=== PATIENT | female | born 1950 | race Two or more races ===

== ENCOUNTER 2024-07-06 14:44 | Inpatient (IN) | payer OTHER ==
[~2024-07-06] VITALS: Ht 162.6 cm; Wt 73.5 kg
[~2024-07-06 14:44] MED LIST: AVAPRO150 MG PO; LIPIT PO; NORVASC5 MG PO; SYNTHROID75 MCG PO
[2024-07-06] MEDS ORDERED: IRBESARTAN-HCT1 EACH (15:10)
[2024-07-06] MEDS ORDERED: METOPROLOL SUCC25 MG (15:10)
[2024-07-06] MEDS ORDERED: LIPITOR40 MG (15:10)
[2024-07-06] MEDS ORDERED: 0.9 % SODIUM CHLORIDE 1,000 ML IV STA (17:11)
[2024-07-06] MEDS ORDERED: KETOROLAC TROMETHAMINE 30 MG VIAL IV STA (17:12)
[2024-07-06] MEDS ORDERED: MORPHINE SULFATE 4 MG/ML CARTRIDGE IV STA (17:13)
[2024-07-06] MEDS ORDERED: HYOSCYAMINE SULFATE 0.125 MG TAB.SUBL SL ONE (17:15)
[2024-07-06] MEDS ORDERED: KETOROLAC TROMETHAMINE 30 MG VIAL ONE (17:23)
[2024-07-06] MEDS ORDERED: HYOSCYAMINE SULFATE 0.125 MG TAB.SUBL ONE (17:24)
[2024-07-06 17:37] LABS: HEMATOCRIT 50.8 % (36.0-45.00); HEMOGLOBIN 16.8 g/dL (12.0-15.00); MEAN CELL VOLUME 88.4 fL (80.00-100.00); MEAN CORPUSCULAR HEMOGLOBIN 29.2 pg (27.00-32.0); MEAN CORPUSCULAR HGB CONC 33.1 g/dl (32.0-36.0); PLATELET COUNT 269 K/uL (150-450); RED BLOOD COUNT 5.75 M/uL (4.00-6.00); RED CELL DISTRIBUTION WIDTH 14.4 % (11.5-14.5)
[2024-07-06 18:22] LABS: INR 0.99; PARTIAL THROMBOPLASTIN TIME 23.8 SECONDS (22.0-34.0); PROTHROMBIN TIME 10.8 SECONDS (9.0-11.5)
[2024-07-06 18:24] LABS: ALBUMIN 3.7 gm/dL (3.4-5.0); BILIRUBIN TOTAL 0.62 mg/dL (0.3-1.2); CALCIUM 9.7 mg/dL (8.5-10.1); CREATININE SERUM 1.54 mg/dL (0.55-1.02); GFR 32.75; GLOBULINA 3.7 G/DL (2.4-3.5); POTASSIUM 4.91 mEq/L (3.5-5.1); TOTAL PROTEIN 7.4 gm/dL (6.4-8.2)
[2024-07-06 23:00] VITALS: BP 104/69; O2SAT 98
[2024-07-06] MEDS ORDERED: ONDANSETRON HCL 4 MG in 0.9 % SODIUM CHLORIDE 50 ML IV PRN (23:00)
[2024-07-06] MEDS ORDERED: 0.9 % SODIUM CHLORIDE 1,000 ML IV SCH (23:00)
[2024-07-06] MEDS ORDERED: KETOROLAC TROMETHAMINE 15 MG VIAL IU ONE (23:00)
[2024-07-06] MEDS ORDERED: ACETAMINOPHEN 500 MG GEL..CAP PO PRN (23:00)
[2024-07-07] MEDS ORDERED: PIPERACILLIN/TAZOBACTAM SODIUM 3.375 GM in DEXTROSE 5 % IN WATER 100 ML IV SCH
[2024-07-07 05:59] VITALS: BP 97/55
[2024-07-07] MEDS ORDERED: LEVOTHYROXINE SODIUM 75 MCG TABLET PO SCH (06:00)
[2024-07-07 08:33] VITALS: BP 150/60; O2SAT 96
[2024-07-07] MEDS ORDERED: ENOXAPARIN SODIUM 40 MG/0.4 ML SYRINGE SUBCUTANEO SCH (09:00)
[2024-07-07] MEDS ORDERED: METOPROLOL SUCCINATE 25 MG TAB.SR.24H PO SCH (09:00)
[2024-07-07] MEDS ORDERED: FAMOTIDINE/PF 20 MG in 0.9 % SODIUM CHLORIDE 8 ML IV PUSH SCH (09:00)
[2024-07-07 10:54] LABS: URINE APPEARANCE Turbid; URINE BILIRRUBIN Small (NEGATIVE); URINE BLOOD Negative; URINE COLOR Dark Yellow; URINE GLUCOSE Negative (NEGATIVE); URINE KETONE Trace (NEGATIVE); URINE LEUKOCYTE Small; URINE NITRATE Negative; URINE PROTEIN 30 (NEGATIVE)
[2024-07-07 10:59] LABS: URINE BACTERIA 264.3 uL (0.0-1933); URINE EPITHELIAL CELLS 32.2 uL (0.0-38.8); URINE RBC 200.6 uL (0.0-20.8)
[2024-07-07 11:47] LABS: URINE CAST > 21.83 uL (0.0-1.40)
[2024-07-07 11:48] LABS: URINE CRYSTALS FEW /HPF
[2024-07-07] MEDS ORDERED: LACTOBACILLUS ACIDOPHILUS 1 CAP CAP PO SCH (17:00)
[2024-07-07 17:27] VITALS: BP 100/57; O2SAT 96
[2024-07-08 01:05] VITALS: BP 115/64; O2SAT 94
[2024-07-08 05:28] LABS: HEMATOCRIT 39.6 % (36.0-45.00); HEMOGLOBIN 13.1 g/dL (12.0-15.00); MEAN CELL VOLUME 88.7 fL (80.00-100.00); MEAN CORPUSCULAR HEMOGLOBIN 29.4 pg (27.00-32.0); MEAN CORPUSCULAR HGB CONC 33.2 g/dl (32.0-36.0); PLATELET COUNT 189 K/uL (150-450); RED BLOOD COUNT 4.46 M/uL (4.00-6.00)
[2024-07-08 06:33] LABS: ALBUMIN 3.1 gm/dL (3.4-5.0); BILIRUBIN TOTAL 0.69 mg/dL (0.3-1.2); CALCIUM 8.6 mg/dL (8.5-10.1); CREATININE SERUM 0.97 mg/dL (0.55-1.02); GFR 55.83; GLOBULINA 3.1 G/DL (2.4-3.5); MAGNESIUM 2.2 mg/dL (1.8-2.4); PHOSPHOROUS 3.3 mg/dL (2.5-4.9); POTASSIUM 3.99 mEq/L (3.5-5.1); TOTAL PROTEIN 6.2 gm/dL (6.4-8.2)
[2024-07-08 06:37] LABS: C-REACTIVE PROTEIN 1.63 MG/DL (0.00-0.29)
[2024-07-08 08:14] VITALS: BP 95/57
[2024-07-08 18:59] VITALS: BP 132/76
[2024-07-08] MEDS ORDERED: 0.9 % SODIUM CHLORIDE 10 ML VIAL IJ ONE (19:34)
[2024-07-08] MEDS ORDERED: METRONIDAZOLE/SODIUM CHLORIDE 100 ML IV SCH (21:00)
[2024-07-08] MEDS ORDERED: CLONAZEPAM 0.5 MG TABLET PO SCH (21:00)
[2024-07-08] MEDS ORDERED: CIPROFLOXACIN IN 5 % DEXTROSE 400 MG/200 ML PIGGYBAG IV SCH (21:00)
[2024-07-09 00:38] VITALS: BP 135/79; O2SAT 93
[2024-07-09 08:57] VITALS: BP 131/71
[2024-07-09 13:07] LABS: ob NEGATIVE (NEGATIVE)
[2024-07-09 16:51] VITALS: BP 150/76; O2SAT 96
[2024-07-10 01:42] VITALS: BP 126/77; O2SAT 93
[2024-07-10 08:49] VITALS: BP 139/72
[2024-07-10 17:20] VITALS: BP 138/79; O2SAT 96
[2024-07-11 01:38] VITALS: BP 123/64; O2SAT 96
[2024-07-11 09:21] VITALS: BP 116/93
[2024-07-12 21:04] LABS: GIARDIA LAMBLIA EIA Negative (Negative)
== END 2024-07-11 18:47 | disposition home or self-care (01) | DRG 392 ==
LOC: ER 14:47 → MEDI 23:00 → MEDJ 07-10 14:14
PROVIDERS: Internal Medicine Infectious Disease; ADMIT Specialist; ATTEND Specialist
PROC: BW21ZZZ Computerized Tomography (CT Scan) of Abdomen and Pelvis (ICD-10-PCS; principal; 2024-07-06)
PROC: CF1C1ZZ Planar Nuclear Medicine Imaging of Hepatobiliary System, All using Technetium 99m (Tc-99m) (ICD-10-PCS; 2024-07-07)
DX: K52.9 Noninfective gastroenteritis and colitis, unspecified (principal); N17.9 Acute kidney failure, unspecified; E03.9 Hypothyroidism, unspecified; I10 Essential (primary) hypertension

== ENCOUNTER 2024-07-22 08:32 | Emergency (ER) | payer OTHER ==
[~2024-07-22] VITALS: Ht 162.6 cm; Wt 72.6 kg
[~2024-07-22 08:32] MED LIST changes: +IRBESARTAN-HCT1 EACH; +LIPITOR40 MG; +METOPROLOL SUCC25 MG
[2024-07-22] MEDS ORDERED: IRBESARTAN-HCT1 EACH PO (09:07)
[2024-07-22] MEDS ORDERED: HYOSCYAMINE SULFATE 0.125 MG TAB.SUBL PO ONE (09:45)
[2024-07-22 10:13] LABS: HEMATOCRIT 41.1 % (36.0-45.00); HEMOGLOBIN 13.7 g/dL (12.0-15.00); MEAN CELL VOLUME 87.9 fL (80.00-100.00); MEAN CORPUSCULAR HEMOGLOBIN 29.3 pg (27.00-32.0); MEAN CORPUSCULAR HGB CONC 33.3 g/dl (32.0-36.0); PLATELET COUNT 225 K/uL (150-450); RED BLOOD COUNT 4.68 M/uL (4.00-6.00); RED CELL DISTRIBUTION WIDTH 14.9 % (11.5-14.5)
[2024-07-22 10:31] LABS: ALBUMIN 3.5 gm/dL (3.4-5.0); BILIRUBIN TOTAL 0.73 mg/dL (0.3-1.2); BILIRUBIN,CONJUGATED 0.17 mg/dL (0.0-0.2); BILIRUBIN,UNCONJUGATED 0.56 mg/dL (0.0-0.6); CALCIUM 9.3 mg/dL (8.5-10.1); CREATININE SERUM 1.02 mg/dL (0.55-1.02); GFR 52.69; POTASSIUM 3.87 mEq/L (3.5-5.1); TOTAL PROTEIN 7.4 gm/dL (6.4-8.2)
[2024-07-22 11:12] LABS: URINE APPEARANCE Clear; URINE BILIRRUBIN Negative (NEGATIVE); URINE BLOOD Negative; URINE COLOR Yellow; URINE GLUCOSE Negative (NEGATIVE); URINE KETONE Negative (NEGATIVE); URINE LEUKOCYTE Small; URINE NITRATE Negative; URINE PROTEIN Negative (NEGATIVE); URINE UROBILINOGEN 0.2 E.U./dl
[2024-07-22 11:15] LABS: URINE BACTERIA 14.6 uL (0.0-1933); URINE CAST 2.35 uL (0.0-1.40); URINE EPITHELIAL CELLS 7.7 uL (0.0-38.8); URINE RBC 7.5 uL (0.0-20.8); URINE WBC 11.3 uL (0.0-23.2)
[2024-07-22] MEDS ORDERED: METRONIDAZOLE/SODIUM CHLORIDE 500 MG/100 ML PIGGYBACK IV STA (13:37)
== END 2024-07-22 15:29 | disposition home or self-care (01) ==
LOC: ER 08:32
PROVIDERS: General Practice
DX: A06.0 Acute amebic dysentery (principal); I10 Essential (primary) hypertension; E03.9 Hypothyroidism, unspecified
CPT/HCPCS: 36415; 74176; 96365; 99283; J3490